=== PATIENT | female | born 1970 | race Caucasian/White ===

== ENCOUNTER 2019-11-07 19:14 | Emergency (ER) | payer OTHER ==
[~2019-11-07] VITALS: Ht 162.6 cm; Wt 74.5 kg
[2019-11-07 19:17] VITALS: BP 142/99
[2019-11-08] MEDS ORDERED: ACET-66 PO (11:25)
[2019-11-08] MEDS ORDERED: RINGERS SOLUTION,LACTATED 1,000 ML IV ONE ×2 (18:09→18:45)
[2019-11-11] MEDS ORDERED: METR500 PO (17:50)
[2019-11-11] MEDS ORDERED: AMOX1TAB16 PO (17:50)
== END 2019-11-07 21:09 | disposition left against medical advice (07) ==
LOC: EMS 19:14
DX: R10.9 Unspecified abdominal pain (principal); Z53.21 Procedure and treatment not carried out due to patient leaving prior to being seen by health care provider
CPT/HCPCS: J7120